=== PATIENT | male | born 1975 | race African-American/Black ===

== ENCOUNTER 2020-06-12 05:37 | Outpatient (CLI) | payer OTHER ==
[~2020-06-12] VITALS: Ht 188 cm; Wt 110.3 kg
--- NOTE | 2020-06-12 06:45 | HISTORY AND PHYSICAL ---
DATE OF SERVICE: COLONOSCOPY HISTORY AND PHYSICAL HISTORY: The patient is a 44-year-old black male referred by for screening colonoscopy. He is deemed to be of higher than average risk as his father was diagnosed with colon cancer, he believes around the age of 55. He is not aware of any bright red blood per rectum, melena, bowel habit change or change in weight. He takes no medications currently. No significant past medical history. PAST SURGICAL HISTORY: He had a bone graft to right navicular fracture from a sports-related injury. SOCIAL HISTORY: He has rare alcohol intake and no past smoking history. He is employed and . 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 FAMILY HISTORY: Notable for father, who he believes around his mid 50s being diagnosed with prostate cancer. He is not aware of any family history for colon cancer. Father also may have had prostate cancer. REVIEW OF SYSTEMS: CONSTITUTIONAL: The patient denies night sweats, chills, fever, change in weight. GASTROINTESTINAL: As noted in the HPI. CARDIAC: The patient denies chest pain, dyspnea on exertion, orthopnea, PND or pedal edema. PULMONARY: The patient denies cough, wheezing or shortness of breath. PHYSICAL EXAMINATION: GENERAL: Reveals a black male who appears to be in no acute distress. He has a stocky build. VITAL SIGNS: Weight 243 pounds, blood pressure 124/92. The patient is slightly anxious. HEENT: Unremarkable. CHEST: Clear. CARDIOVASCULAR: Revealed a regular rate and rhythm without murmur, S3 or S4. ABDOMEN: Soft, supple without mass, organomegaly or tenderness. EXTREMITIES: Reveal no cyanosis, clubbing or edema. ASSESSMENT AND PLAN: The patient will be set up for somewhat early screening colonoscopy due to family history for early colon cancer, index case being father diagnosed somewhere around his mid 50s. Prep instructions and Suprep kit were given and questions were answered. I thank you for the referral of this pleasant gentleman. Job ID: [id number] DocumentID: [id number] Dictated Date: 06/10/2020 17:16:57 Sock Ironer Date: 06/10/2020 17:41:39 Dictated By: THERESA PASTOR MD
== END 2020-06-12 12:16 | disposition home or self-care (01) ==
LOC: PREOP 05:37
PROVIDERS: ATTEND Internal Medicine
DX: Z01.818 Encounter for other preprocedural examination (principal)

== ENCOUNTER 2020-07-16 05:38 | Outpatient (CLI) | payer OTHER ==
[~2020-07-16] VITALS: Ht 188 cm; Wt 110.3 kg
== END 2020-07-16 11:06 | disposition home or self-care (01) ==
LOC: PREOP 05:38
PROVIDERS: ATTEND Internal Medicine
DX: Z01.818 Encounter for other preprocedural examination (principal)

== ENCOUNTER 2020-07-24 06:59 | Day surgery (SDC) | payer OTHER ==
--- NOTE | 2020-07-23 21:09 | HISTORY AND PHYSICAL ---
DATE OF SERVICE: ADDENDUM The patient is a 44-year-old white male who is set up for screening colonoscopy. He is deemed to be of higher than average risk as his father was diagnosed with colon cancer in his mid 50s. The patient reports no change since he was initially evaluated on 06/19/2020. He has had no chest discomfort and has no cardiac or pulmonary history. PHYSICAL EXAMINATION: GENERAL: Reveals a male who appears to be in no acute distress. VITAL SIGNS: Blood pressure 120/88. CHEST: Clear. CARDIOVASCULAR: Reveals a regular rate and rhythm without murmur, S3 or S4. ASSESSMENT: No contraindications to proceeding with planned colonoscopy on 07/24/2020. Prep instructions discussed, questions answered. Job ID: [id number] DocumentID: [id number] Dictated Date: 07/23/2020 20:59:25 It Help Desk Associate Date: 07/23/2020 21:09:19 Dictated By: THERESA PASTOR MD
[~2020-07-24] VITALS: Ht 188 cm; Wt 110.3 kg
[2020-07-24] MEDS ORDERED: LACTATED RINGERS 1,000 ML IV ONE (07:02)
[2020-07-24] MEDS ORDERED: LACTATED RINGERS 1,000 ML IV STA (07:09)
[2020-07-24] MEDS ORDERED: proPOfol 200 MG/20 ML (DIPRIVAN) VIAL IV ONE (07:15)
[2020-07-24] MEDS ORDERED: LIDOCAINE JELLY 2% 6 ML SYRINGE MM PRN (07:15)
[2020-07-24] MEDS ORDERED: MIDAZOLAM 2 MG/2 ML (VERSED) VIAL ONE (07:18)
[2020-07-24 07:54] VITALS: BP 123/92
--- NOTE | 2020-07-24 07:59 | Pre-Op Note & Conscious Sedat ---
Pre-Operative Progress Note H&P Reviewed The H&P was reviewed, patient examined and no changes noted. Date H&P Reviewed: Jul 24, 2020 Time H&P Reviewed: 07:40 Conscious Sedation Pre-Proced ASA Score 2 For ASA 3 and 4: Consider anesthesia and medical clearance. Also, for patients with a history of failed moderate sedation consider anesthesia. Airway Lungs Heart ASA score ASA 1: a normal healthy patient ASA 2: a patient with a mild systemic disease (mid diabetes, controlled hypertension, obesity ASA 3: a patient with a severe systemic disease that limits activity (angina, COPD, prior Myocardial infarction) ASA 4: a patient with an incapacitating disease that is a constant threat to life (CHF, renal failure) ASA 5: a moribund patient not expected to survive 24 hrs. (ruptured aneurysm) ASA 6: a declared brain- patient whose organs are being harvested. For emergent operations, add the letter E after the classification Mallampati Classification Grade 2 Sedation Plan Analgesia, Amnesia, Plan communicated to team members, Discussed options with patient/fam, Discussed risks with patient/fam The patient is an appropriate candidate to undergo the planned procedure, sedation, and anesthesia. The patient immediately re-assessed prior to indication. THERESA PASTOR MD Jul 24, 2020 07:59
[2020-07-24 08:30] VITALS: BP 119/81
[2020-07-24 08:35] VITALS: BP 123/78
[2020-07-24 08:50] VITALS: BP 114/95
[2020-07-24 08:55] VITALS: BP 114/95
--- NOTE | 2020-07-24 18:58 | OPERATIVE REPORT ---
DATE OF SERVICE: COLONOSCOPY SUMMARY INDICATION FOR THE PROCEDURE: Screening colonoscopy, family history for colon cancer. DESCRIPTION OF PROCEDURE: The patient was placed in the left lateral decubitus position. Prior to undergoing colonoscopy, digital rectal evaluation was performed. Anal sphincter tone was normal and the perianal reflexes intact. The prostate was normal in size, anodular, nontender to digital inspection. No abnormalities were noted on digital inspection of the anal canal or distal rectal vault. The colonoscope was then inserted into the rectum and under direct visualization advanced to cecum. The cecum was identified by identification of the ileocecal valve and cecal strap. Photographic documentation was obtained. Quality of prep was good. FINDINGS: There was no evidence for internal or external hemorrhoids and the rectum, sigmoid colon, descending colon, splenic flexure, transverse colon, hepatic flexure, ascending colon and cecum were normal with no evidence for neoplasia or diverticular disease. ASSESSMENT: Normal colonoscopy to the cecum. Considering family history, I would advocate repeat screening colonoscopy in 5 years. Digital evaluation of the prostate was normal as well today. I thank you for the referral of this pleasant gentleman. Job ID: [id number] DocumentID: [id number] Dictated Date: 07/24/2020 11:36:16 Threat Analyst Date: 07/24/2020 18:57:45 Dictated By: THERESA PASTOR MD
--- NOTE | 2020-07-28 11:47 | Anesthesia-General Post-Op ---
MAC Patient Condition Mental Status/LOC: Same as Preop Cardiovascular: Satisfactory Nausea/Vomiting: Absent Respiratory: Satisfactory Pain: Controlled Complications: Absent Post Op Complications Complications None Follow Up Care/Instructions Patient Instructions None needed. Anesthesiology Discharge Order Discharge Order Post-dated progress note: Patient was seen on 07-24 at approximately 0840 after the procedure and he was doing well, no complaints, stable vital signs, no apparent adverse anesthesia problems. JENNY RAMON DO Jul 28, 2020 11:47
== END 2020-07-24 09:40 | disposition home or self-care (01) ==
LOC: ENDO 06:59
PROVIDERS: ATTEND Internal Medicine
DX: Z12.11 Encounter for screening for malignant neoplasm of colon (principal); Z80.0 Family history of malignant neoplasm of digestive organs